=== PATIENT | female | born 1930 | race Caucasian/White ===

== ENCOUNTER 2020-09-12 10:05 | Inpatient (IN) ==
[2020-09-12] MEDS ORDERED: Morphine Sulfate 2 MG/ML SYRINGE IVP ONE (10:29)
[2020-09-12 10:45] LABS: Bacteria,Urine Few per hpf (None-Few); Bilirubin,Urine Negative (Negative); Blood,Urine Negative (Negative); Clarity,Urine Turbid (Clear); Color,Urine Light-Yellow (Yellow); Glucose,Urine (UA) Normal (Normal); Hyaline Casts,Urine Few per lpf (None Seen); Ketones,Urine Negative (Negative); Leukocyte Esterase,Urine Negative (Negative); Nitrite,Urine Negative (Negative); Protein,Urine 50 mg/dL (Neg-Trace); Specific Gravity,Urine 1.011 (1.010-1.025); Urobilinogen,Urine Normal (Normal); WBC,Urine 0-3 per hpf (0-3)
[2020-09-12 10:48] LABS: Hematocrit 26.7 % (35.3-44.9); Hemoglobin 7.9 g/dL (11.5-15.4); Mean Corpuscular HGB Conc 29.6 g/dL (31.6-35.5); Mean Corpuscular Hemoglobin 20.7 pg (28.0-33.3); Mean Corpuscular Volume 70.1 fL (83.0-100.0); Nucleated Red Blood Cells 9.7 /100 WBC (0); Platelet Count 232 K/mcL (140-400); Red Blood Count 3.81 M/mcL (3.82-4.97); Red Cell Distribution Width 23.9 % (11.5-14.5); White Blood Count 8.7 K/mcL (4.3-11.1)
[2020-09-12 11:09] LABS: Activated Partial Thrombo Time 29.5 Seconds (26.0-36.0)
[2020-09-12 11:10] LABS: Calcium 10.9 mg/dL (8.6-10.3); Potassium 4.1 mEq/L (3.5-5.1); Troponin I 0.03 ng/mL (< 0.04)
[2020-09-12 12:06] LABS: Anisocytosis 3+ (Not Present); Eosinophils # 0.3 K/mcL (0.0-0.6); Lymphocytes # 1.2 K/mcL (0.6-4.6); Monocytes # 0.4 K/mcL (0.0-1.3); Neutrophils # 6.5 K/mcL (1.6-8.9); Reactive Lymphocytes Present (Not Present)
[2020-09-12 12:11] LABS: Acanthocytes 1+ (Not Present); Polychromasia 3+ (Not Present)
[2020-09-12 12:12] LABS: Basophilic Stippling 1+ (Not Present); Microcytosis Present (Not Present); Target Cells 1+ (Not Present); Tear Drop Cells 1+ (Not Present)
[2020-09-12 12:13] LABS: Ovalocytes 1+ (Not Present)
[2020-09-12 12:14] LABS: Platelet Estimate Normal (Normal); Poikilocytosis 2+ (Not Present)
[2020-09-12 12:15] LABS: Hypochromasia Present (Not Present)
[2020-09-12] MEDS ORDERED: *HR* HYDROcodone/Acet 5/325 mg TABLET PO ONE (13:35)
[2020-09-12] MEDS ORDERED: Naloxone 0.4 MG/ML INJ IVP PRN (15:26)
[2020-09-12] MEDS ORDERED: Acetaminophen 325 MG TABLET PO PRN (15:26)
[2020-09-12] MEDS: 0.9 % Sodium Chloride 1,000 ML IVC SCH (17:09)
[2020-09-12] MEDS ORDERED: hydrALAZINE 10 MG TABLET PO ONE (18:45)
[2020-09-12] MEDS: hydrALAZINE 25 MG TABLET PO SCH (21:13)
[2020-09-12] MEDS: paricalcitoL 1 MCG CAPSULE PO SCH (21:14)
[2020-09-12] MEDS: Cholecalciferol (D-3) 1,000 UNIT (25MCG) TABLET PO SCH (21:14)
[2020-09-12] MEDS: *HR* HYDROcodone/Acet 5/325 mg TABLET PO PRN (21:15)
[2020-09-12] MEDS: Melatonin 3 MG TABLET PO PRN (22:51)
[2020-09-13 04:43] LABS: Hematocrit 27.7 % (35.3-44.9); Hemoglobin 8.1 g/dL (11.5-15.4); Mean Corpuscular HGB Conc 29.2 g/dL (31.6-35.5); Mean Corpuscular Hemoglobin 20.7 pg (28.0-33.3); Mean Corpuscular Volume 70.7 fL (83.0-100.0); Mean Platelet Volume 8.9 fL (9.4-12.4); Platelet Count 226 K/mcL (140-400); Red Blood Count 3.92 M/mcL (3.82-4.97); Red Cell Distribution Width 24.6 % (11.5-14.5); White Blood Count 9.3 K/mcL (4.3-11.1)
[2020-09-13 04:59] LABS: Calcium 9.7 mg/dL (8.6-10.3); Chol/HDL Ratio 4.9 (0-4.9); Magnesium 1.5 mg/dL (1.6-2.6); Phosphorous 3.1 mg/dL (2.7-4.5); Potassium 4.3 mEq/L (3.5-5.1)
[2020-09-13 05:02] LABS: % Iron Saturation 31 % (15-50); Iron 82 mcg/dL (50-170); Transferrin 191 mg/dL (203-362)
[2020-09-13 05:17] LABS: Ferritin 189 ng/mL (10-120)
[2020-09-13 05:25] LABS: Folate > 22.3 ng/mL (3.0-16.0); Vitamin B12 1173 pg/mL (250-1100)
[2020-09-13] MEDS: lisinopriL 20 MG TABLET PO SCH (08:01)
[2020-09-13] MEDS: paricalcitoL 1 MCG CAPSULE PO SCH ×2 (08:01→21:09)
[2020-09-13] MEDS: hydrALAZINE 25 MG TABLET PO SCH ×2 (08:01→21:09)
[2020-09-13] MEDS: Cholecalciferol (D-3) 1,000 UNIT (25MCG) TABLET PO SCH ×2 (08:02→21:09)
[2020-09-13] MEDS: Folic Acid 1 MG TABLET PO SCH (08:02)
[2020-09-13] MEDS: Pyridoxine (B-6) 50 MG TABLET PO SCH (08:02)
[2020-09-13] MEDS: 0.9 % Sodium Chloride 1,000 ML IVC SCH (11:25)
[2020-09-13] MEDS: *HR* HYDROcodone/Acet 5/325 mg TABLET PO PRN ×2 (15:28→21:09)
[2020-09-14 05:24] LABS: Hematocrit 27.2 % (35.3-44.9); Hemoglobin 7.9 g/dL (11.5-15.4); Mean Corpuscular Hemoglobin 21.1 pg (28.0-33.3); Mean Corpuscular Volume 72.7 fL (83.0-100.0); Mean Platelet Volume 9.1 fL (9.4-12.4); Platelet Count 203 K/mcL (140-400); Red Blood Count 3.74 M/mcL (3.82-4.97); Red Cell Distribution Width 25.9 % (11.5-14.5); White Blood Count 8.3 K/mcL (4.3-11.1)
[2020-09-14 05:36] LABS: Calcium 9.5 mg/dL (8.6-10.3); Potassium 3.8 mEq/L (3.5-5.1)
[2020-09-14] MEDS: 0.9 % Sodium Chloride 1,000 ML IVC SCH (06:07)
[2020-09-14] MEDS: paricalcitoL 1 MCG CAPSULE PO SCH ×2 (09:20→19:54)
[2020-09-14] MEDS: hydrALAZINE 25 MG TABLET PO SCH ×3 (09:20→19:55)
[2020-09-14] MEDS: Pyridoxine (B-6) 50 MG TABLET PO SCH (09:20)
[2020-09-14] MEDS: Cholecalciferol (D-3) 1,000 UNIT (25MCG) TABLET PO SCH ×2 (09:21→19:55)
[2020-09-14] MEDS: lisinopriL 20 MG TABLET PO SCH (09:21)
[2020-09-14] MEDS: Folic Acid 1 MG TABLET PO SCH (09:21)
[2020-09-14] MEDS: *HR* HYDROcodone/Acet 5/325 mg TABLET PO PRN ×2 (14:08→19:55)
[2020-09-14] MEDS: Melatonin 3 MG TABLET PO PRN (19:55)
[2020-09-15] MEDS: 0.9 % Sodium Chloride 1,000 ML IVC SCH ×2 (01:10→14:55)
[2020-09-15 04:39] LABS: Hematocrit 26.4 % (35.3-44.9); Hemoglobin 7.7 g/dL (11.5-15.4); Mean Corpuscular HGB Conc 29.2 g/dL (31.6-35.5); Mean Corpuscular Hemoglobin 21.6 pg (28.0-33.3); Mean Corpuscular Volume 74.2 fL (83.0-100.0); Mean Platelet Volume 9.1 fL (9.4-12.4); Platelet Count 196 K/mcL (140-400); Red Blood Count 3.56 M/mcL (3.82-4.97); Red Cell Distribution Width 26.5 % (11.5-14.5); White Blood Count 7.6 K/mcL (4.3-11.1)
[2020-09-15 04:59] LABS: Calcium 9.5 mg/dL (8.6-10.3); Potassium 3.9 mEq/L (3.5-5.1)
[2020-09-15] MEDS: Magnesium Oxide 400 MG TABLET PO SCH (08:50)
[2020-09-15] MEDS: Cholecalciferol (D-3) 1,000 UNIT (25MCG) TABLET PO SCH ×2 (08:50→22:10)
[2020-09-15] MEDS: lisinopriL 20 MG TABLET PO SCH (08:51)
[2020-09-15] MEDS: Pyridoxine (B-6) 50 MG TABLET PO SCH (08:51)
[2020-09-15] MEDS: paricalcitoL 1 MCG CAPSULE PO SCH ×2 (08:51→22:10)
[2020-09-15] MEDS: Folic Acid 1 MG TABLET PO SCH (08:51)
[2020-09-15] MEDS: hydrALAZINE 25 MG TABLET PO SCH ×3 (08:51→22:11)
[2020-09-15] MEDS: *HR* HYDROcodone/Acet 5/325 mg TABLET PO PRN (08:53)
[2020-09-15] MEDS: Melatonin 3 MG TABLET PO PRN (22:10)
[2020-09-16 05:21] LABS: Calcium 9.2 mg/dL (8.6-10.3); Potassium 3.8 mEq/L (3.5-5.1)
[2020-09-16] MEDS: lisinopriL 20 MG TABLET PO SCH (05:28)
[2020-09-16] MEDS: hydrALAZINE 25 MG TABLET PO SCH ×2 (05:28→14:30)
[2020-09-16 08:36] LABS: Hematocrit 28.3 % (35.3-44.9); Hemoglobin 8.4 g/dL (11.5-15.4); Mean Corpuscular HGB Conc 29.7 g/dL (31.6-35.5); Mean Corpuscular Hemoglobin 21.5 pg (28.0-33.3); Mean Corpuscular Volume 72.4 fL (83.0-100.0); Mean Platelet Volume 8.8 fL (9.4-12.4); Platelet Count 184 K/mcL (140-400); Red Blood Count 3.91 M/mcL (3.82-4.97); Red Cell Distribution Width 27.3 % (11.5-14.5); White Blood Count 8.1 K/mcL (4.3-11.1)
[2020-09-16] MEDS: 0.9 % Sodium Chloride 1,000 ML IVC SCH (08:38)
[2020-09-16] MEDS: Cholecalciferol (D-3) 1,000 UNIT (25MCG) TABLET PO SCH (08:39)
[2020-09-16] MEDS: Magnesium Oxide 400 MG TABLET PO SCH (08:39)
[2020-09-16] MEDS: Pyridoxine (B-6) 50 MG TABLET PO SCH (08:39)
[2020-09-16] MEDS: paricalcitoL 1 MCG CAPSULE PO SCH (08:39)
[2020-09-16] MEDS: Folic Acid 1 MG TABLET PO SCH (08:39)
[2020-09-16] MEDS: cloNIDine HCL 0.1 MG TABLET PO SCH ×2 (10:48→14:30)
[2020-09-16 12:37] VITALS: BP 158/62
== END 2020-09-16 15:43 | disposition home or self-care (01) ==
LOC: EMEROOARM 10:05 → 3BNU 10:05
PROVIDERS: ADMIT Internal Medicine; ATTEND Internal Medicine

== ENCOUNTER 2020-11-24 10:36 | Inpatient (IN) ==
[2020-11-24 11:34] LABS: Basophils % 0.1 %; Eosinophils % 0.2 %; Hematocrit 28.9 % (35.3-44.9); Hemoglobin 8.6 g/dL (11.5-15.4); Immature Granulocytes % 0.6 % (0-4); Lymphocytes # 2.4 K/mcL (0.6-4.6); Lymphocytes % 21.3 %; Mean Corpuscular HGB Conc 29.8 g/dL (31.6-35.5); Mean Corpuscular Hemoglobin 21.4 pg (28.0-33.3); Mean Corpuscular Volume 72.1 fL (83.0-100.0); Mean Platelet Volume 8.5 fL (9.4-12.4); Monocytes # 1.2 K/mcL (0.0-1.3); Monocytes % 10.6 %; Neutrophils # 7.4 K/mcL (1.6-8.9); Nucleated Red Blood Cells 0.3 /100 WBC (0); Platelet Count 250 K/mcL (140-400); Red Blood Count 4.01 M/mcL (3.82-4.97); Red Cell Distribution Width 21.9 % (11.5-14.5); Segmented Neutrophils % 67.2 %; White Blood Count 11.1 K/mcL (4.3-11.1)
[2020-11-24 11:48] LABS: INR 1.1; Prothrombin Time 12.7 Seconds (9.4-12.1)
[2020-11-24 11:56] LABS: BUN/Creatinine Ratio 11 (6-26); Blood Urea Nitrogen 59 mg/dL (8-23); Calcium 10.3 mg/dL (8.6-10.3); Carbon Dioxide 20 mEq/L (23-29); Chloride 105 mEq/L (98-107); Creatine Kinase 265 Units/L (30-223); Glucose 122 mg/dL (70-105); Osmolality,Calculated 298 (280-300); Sodium 135 mEq/L (136-145); Troponin I < 0.03 ng/mL (< 0.04); eGFR For African Americans 9 (> 60); eGFR For Non-African Americans 7 (> 60)
[2020-11-24 11:58] LABS: Bilirubin,Urine Negative (Negative); Blood,Urine Small (Negative); Clarity,Urine Turbid (Clear); Color,Urine Yellow (Yellow); Glucose,Urine (UA) Normal (Normal); Ketones,Urine Negative (Negative); Leukocyte Esterase,Urine Large (Negative); Nitrite,Urine Negative (Negative); PH,Urine 7.5 pH Units (5.0-8.0); Protein,Urine 100 mg/dL (Neg-Trace); RBC,Urine 0-3 per hpf (0-3); Specific Gravity,Urine 1.011 (1.010-1.025); Urobilinogen,Urine Normal (Normal); WBC,Urine TNTC per hpf (0-3)
[2020-11-24] MEDS: cefTRIAXone 1,000 MG in Water for inj. (sterile) 10 ML IVP ONE (13:53)
[2020-11-24] MEDS ORDERED: Naloxone 0.4 MG/ML INJ IVP PRN (14:30)
[2020-11-24] MEDS ORDERED: Ondansetron 4 MG/2 ML VIAL IVP PRN (14:30)
[2020-11-24] MEDS ORDERED: 0.9 % Sodium Chloride 1,000 ML IVC SCH (14:45)
[2020-11-24] MEDS: hydrALAZINE 25 MG TABLET PO SCH ×3 (15:36→20:29)
[2020-11-24] MEDS ORDERED: cloNIDine HCL 0.1 MG TABLET PO ONE (16:35)
[2020-11-24] MEDS ORDERED: *HR* HYDROcodone/Acet 5/325 mg TABLET PO ONE (18:21)
[2020-11-24] MEDS: cloNIDine HCL 0.1 MG TABLET PO SCH (20:29)
[2020-11-25 01:19] LABS: Basophils % 0.2 %; Eosinophils # 0.1 K/mcL (0.0-0.6); Eosinophils % 0.9 %; Hematocrit 26.6 % (35.3-44.9); Immature Granulocytes % 0.6 % (0-4); Lymphocytes # 2.4 K/mcL (0.6-4.6); Lymphocytes % 20.5 %; Mean Corpuscular HGB Conc 30.1 g/dL (31.6-35.5); Mean Corpuscular Hemoglobin 21.3 pg (28.0-33.3); Mean Corpuscular Volume 70.9 fL (83.0-100.0); Mean Platelet Volume 8.7 fL (9.4-12.4); Monocytes # 1.2 K/mcL (0.0-1.3); Monocytes % 10.7 %; Neutrophils # 7.8 K/mcL (1.6-8.9); Nucleated Red Blood Cells 0.2 /100 WBC (0); Platelet Count 259 K/mcL (140-400); Red Blood Count 3.75 M/mcL (3.82-4.97); Red Cell Distribution Width 21.8 % (11.5-14.5); Segmented Neutrophils % 67.1 %; White Blood Count 11.5 K/mcL (4.3-11.1)
[2020-11-25 01:39] LABS: Calcium 9.5 mg/dL (8.6-10.3); Magnesium 2.1 mg/dL (1.6-2.6); Potassium 4.6 mEq/L (3.5-5.1)
[2020-11-25] MEDS: cloNIDine HCL 0.1 MG TABLET PO SCH ×3 (07:58→20:07)
[2020-11-25] MEDS: hydrALAZINE 25 MG TABLET PO SCH ×3 (07:58→20:07)
[2020-11-25] MEDS: Sodium Bicarbonate 75 MEQ in 0.45 % Sodium Chloride 1,000 ML IVC SCH (11:32)
[2020-11-25 11:41] LABS: Protein/Creatinine Ratio,Urine 2.67 mg/mg (0.00-0.20); Sodium, Urine 107.5 mEq/L
[2020-11-25 11:49] LABS: Bacteria,Urine Few per hpf (None-Few); Bilirubin,Urine Negative (Negative); Blood,Urine Small (Negative); Clarity,Urine Turbid (Clear); Color,Urine Yellow (Yellow); Glucose,Urine (UA) Normal (Normal); Ketones,Urine Negative (Negative); Leukocyte Esterase,Urine Large (Negative); Nitrite,Urine Negative (Negative); Protein,Urine 100 mg/dL (Neg-Trace); RBC,Urine 15-30 per hpf (0-3); Specific Gravity,Urine 1.012 (1.010-1.025); Urobilinogen,Urine Normal (Normal); WBC,Urine TNTC per hpf (0-3)
[2020-11-25] MEDS: cefTRIAXone 1,000 MG in 0.9 % Sodium Chloride Mini Bag 100 ML IVPB SCH (14:43)
[2020-11-25] MEDS: paricalcitoL 1 MCG CAPSULE PO SCH (20:07)
[2020-11-25] MEDS: cefTRIAXone 1,000 MG in Water for inj. (sterile) 10 ML IVP ONE (20:56)
[2020-11-26] MEDS: Sodium Bicarbonate 75 MEQ in 0.45 % Sodium Chloride 1,000 ML IVC SCH (05:18)
[2020-11-26] MEDS: hydrALAZINE 25 MG TABLET PO SCH ×3 (08:09→20:36)
[2020-11-26] MEDS: cloNIDine HCL 0.1 MG TABLET PO SCH ×3 (08:09→20:37)
[2020-11-26] MEDS: Folic Acid 1 MG TABLET PO SCH (08:09)
[2020-11-26] MEDS: paricalcitoL 1 MCG CAPSULE PO SCH ×2 (08:09→20:37)
[2020-11-26 08:11] LABS: Hematocrit 27.5 % (35.3-44.9); Hemoglobin 8.4 g/dL (11.5-15.4); Mean Corpuscular HGB Conc 30.5 g/dL (31.6-35.5); Mean Corpuscular Hemoglobin 21.6 pg (28.0-33.3); Mean Corpuscular Volume 70.7 fL (83.0-100.0); Mean Platelet Volume 8.3 fL (9.4-12.4); Platelet Count 260 K/mcL (140-400); Red Blood Count 3.89 M/mcL (3.82-4.97); Red Cell Distribution Width 21.8 % (11.5-14.5); White Blood Count 8.2 K/mcL (4.3-11.1)
[2020-11-26 08:28] LABS: Calcium 9.2 mg/dL (8.6-10.3); Magnesium 1.9 mg/dL (1.6-2.6); Potassium 4.1 mEq/L (3.5-5.1)
[2020-11-26] MEDS: cefTRIAXone 1,000 MG in 0.9 % Sodium Chloride Mini Bag 100 ML IVPB SCH (14:59)
[2020-11-26] MEDS ORDERED: Melatonin 3 MG TABLET PO PRN (15:19)
[2020-11-26] MEDS: *HR* Heparin 5,000 UNIT/ML VIAL SQ SCH (16:42)
[2020-11-26] MEDS: Ciprofloxacin/Dex *EAR* Susp 7.5 ML BOTTLE RIGHT EAR SCH (20:37)
[2020-11-26] MEDS ORDERED: Sodium Bicarbonate 75 MEQ in 0.45 % Sodium Chloride 1,000 ML IH SCH (20:45)
[2020-11-26] MEDS ORDERED: Sodium Bicarbonate 75 MEQ in 0.45 % Sodium Chloride 1,000 ML IVC SCH (21:00)
[2020-11-27] MEDS: Sodium Bicarbonate 75 MEQ in 0.45 % Sodium Chloride 1,000 ML IVC SCH (02:25)
[2020-11-27] MEDS: *HR* Heparin 5,000 UNIT/ML VIAL SQ SCH ×2 (05:29→18:11)
[2020-11-27 05:44] LABS: Hematocrit 26.3 % (35.3-44.9); Hemoglobin 7.8 g/dL (11.5-15.4); Mean Corpuscular HGB Conc 29.7 g/dL (31.6-35.5); Mean Corpuscular Hemoglobin 21.4 pg (28.0-33.3); Mean Corpuscular Volume 72.3 fL (83.0-100.0); Mean Platelet Volume 8.8 fL (9.4-12.4); Platelet Count 262 K/mcL (140-400); Red Blood Count 3.64 M/mcL (3.82-4.97); Red Cell Distribution Width 21.6 % (11.5-14.5); White Blood Count 8.1 K/mcL (4.3-11.1)
[2020-11-27 06:08] LABS: Potassium 4.3 mEq/L (3.5-5.1)
[2020-11-27] MEDS: paricalcitoL 1 MCG CAPSULE PO SCH ×2 (08:44→21:11)
[2020-11-27] MEDS: cloNIDine HCL 0.1 MG TABLET PO SCH ×3 (08:44→21:10)
[2020-11-27] MEDS: Folic Acid 1 MG TABLET PO SCH (08:44)
[2020-11-27] MEDS: hydrALAZINE 25 MG TABLET PO SCH ×3 (08:44→21:11)
[2020-11-27] MEDS: Ciprofloxacin/Dex *EAR* Susp 7.5 ML BOTTLE RIGHT EAR SCH ×2 (08:46→21:16)
[2020-11-27] MEDS ORDERED: amLODIPine 5 MG TABLET PO SCH (09:00)
[2020-11-27] MEDS: cefTRIAXone 1,000 MG in 0.9 % Sodium Chloride Mini Bag 100 ML IVPB SCH (12:10)
[2020-11-27] MEDS ORDERED: amLODIPine 5 MG TABLET PO ONE (21:00)
[2020-11-28 03:32] LABS: Hematocrit 26.7 % (35.3-44.9); Mean Corpuscular Hemoglobin 21.3 pg (28.0-33.3); Mean Platelet Volume 8.6 fL (9.4-12.4); Platelet Count 246 K/mcL (140-400); Red Blood Count 3.76 M/mcL (3.82-4.97); Red Cell Distribution Width 21.8 % (11.5-14.5)
[2020-11-28 03:48] LABS: Potassium 3.9 mEq/L (3.5-5.1)
[2020-11-28] MEDS: *HR* Heparin 5,000 UNIT/ML VIAL SQ SCH ×2 (05:27→17:49)
[2020-11-28] MEDS: hydrALAZINE 25 MG TABLET PO SCH ×3 (07:50→20:48)
[2020-11-28] MEDS: paricalcitoL 1 MCG CAPSULE PO SCH ×2 (07:50→20:48)
[2020-11-28] MEDS: cloNIDine HCL 0.1 MG TABLET PO SCH ×3 (07:51→20:48)
[2020-11-28] MEDS: Folic Acid 1 MG TABLET PO SCH (07:51)
[2020-11-28] MEDS: Ciprofloxacin/Dex *EAR* Susp 7.5 ML BOTTLE RIGHT EAR SCH ×2 (07:52→20:49)
[2020-11-28] MEDS: Cefdinir 300 MG CAPSULE PO SCH (15:47)
[2020-11-28] MEDS: cefTRIAXone 1,000 MG in 0.9 % Sodium Chloride Mini Bag 100 ML IVPB SCH (17:00)
[2020-11-28] MEDS: amLODIPine 5 MG TABLET PO SCH (21:15)
[2020-11-29 05:35] LABS: Hematocrit 23.5 % (35.3-44.9); Mean Corpuscular HGB Conc 29.8 g/dL (31.6-35.5); Mean Corpuscular Hemoglobin 21.3 pg (28.0-33.3); Mean Corpuscular Volume 71.4 fL (83.0-100.0); Platelet Count 220 K/mcL (140-400); Red Blood Count 3.29 M/mcL (3.82-4.97); White Blood Count 8.8 K/mcL (4.3-11.1)
[2020-11-29] MEDS: *HR* Heparin 5,000 UNIT/ML VIAL SQ SCH ×2 (05:49→17:25)
[2020-11-29 05:52] LABS: Potassium 3.8 mEq/L (3.5-5.1)
[2020-11-29] MEDS: paricalcitoL 1 MCG CAPSULE PO SCH ×2 (08:13→20:31)
[2020-11-29] MEDS: Ciprofloxacin/Dex *EAR* Susp 7.5 ML BOTTLE RIGHT EAR SCH ×2 (08:13→20:32)
[2020-11-29] MEDS: hydrALAZINE 25 MG TABLET PO SCH ×3 (08:14→20:32)
[2020-11-29] MEDS: amLODIPine 5 MG TABLET PO SCH (08:14)
[2020-11-29] MEDS: cloNIDine HCL 0.1 MG TABLET PO SCH ×3 (08:14→20:32)
[2020-11-29] MEDS: Folic Acid 1 MG TABLET PO SCH (08:14)
[2020-11-29] MEDS: Cefdinir 300 MG CAPSULE PO SCH (14:58)
[2020-11-30 01:03] LABS: Hemoglobin 7.4 g/dL (11.5-15.4); Mean Corpuscular HGB Conc 29.6 g/dL (31.6-35.5); Mean Corpuscular Hemoglobin 20.8 pg (28.0-33.3); Mean Corpuscular Volume 70.4 fL (83.0-100.0); Mean Platelet Volume 8.8 fL (9.4-12.4); Platelet Count 250 K/mcL (140-400); Red Blood Count 3.55 M/mcL (3.82-4.97); Red Cell Distribution Width 21.2 % (11.5-14.5); White Blood Count 9.9 K/mcL (4.3-11.1)
[2020-11-30 01:21] LABS: Calcium 9.3 mg/dL (8.6-10.3); Potassium 3.9 mEq/L (3.5-5.1)
[2020-11-30 01:22] LABS: % Iron Saturation 11 % (15-50); Iron 21 mcg/dL (50-170); Transferrin 133 mg/dL (203-362)
[2020-11-30 01:40] LABS: Ferritin 342 ng/mL (10-120)
[2020-11-30 01:46] LABS: Folate 21.4 ng/mL (3.0-16.0)
[2020-11-30] MEDS: *HR* Heparin 5,000 UNIT/ML VIAL SQ SCH (05:57)
[2020-11-30] MEDS ORDERED: Iron Sucrose Complex 400 MG in 0.9 % Sodium Chloride 250 ML IVPB ONE (07:13)
[2020-11-30] MEDS ORDERED: 0.9 % Sodium Chloride 1,000 ML IVC SCH (07:15)
[2020-11-30] MEDS: Ciprofloxacin/Dex *EAR* Susp 7.5 ML BOTTLE RIGHT EAR SCH (08:31)
[2020-11-30] MEDS: hydrALAZINE 25 MG TABLET PO SCH ×2 (08:32→13:58)
[2020-11-30] MEDS: cloNIDine HCL 0.1 MG TABLET PO SCH ×2 (08:32→13:58)
[2020-11-30] MEDS: Folic Acid 1 MG TABLET PO SCH (08:32)
[2020-11-30] MEDS: paricalcitoL 1 MCG CAPSULE PO SCH (08:36)
[2020-11-30] MEDS: amLODIPine 5 MG TABLET PO SCH (08:36)
[2020-11-30 11:26] VITALS: BP 139/54
[2020-11-30] MEDS ORDERED: predniSONE 20 MG TABLET PO SCH (12:30)
[2020-11-30 15:40] LABS: Adenovirus Not Detected (Not Detect); Bordetella Pertussis Not Detected (Not Detect); Chlamydophila pneumoniae Not Detected (Not Detect); Coronavirus 229E Not Detected (Not Detect); Coronavirus HKU1 Not Detected (Not Detect); Coronavirus NL63 Not Detected (Not Detect); Coronavirus OC43 Not Detected (Not Detect); Human Metapneumovirus Not Detected (Not Detect); Human Rhinovirus/Enterovirus Not Detected (Not Detect); Influenza A Subtype 2009 H1 Not Detected (Not Detect); Influenza B Not Detected (Not Detect); Mycoplasma pneumoniae Not Detected (Not Detect); Parainfluenza Virus 1 Not Detected (Not Detect); Parainfluenza Virus 2 Not Detected (Not Detect); Parainfluenza Virus 3 Not Detected (Not Detect); Parainfluenza Virus 4 Not Detected (Not Detect); Respiratory Syncytial Virus Not Detected (Not Detect); SARS-CoV-2 Not Detected (Not Detect)
[2020-11-30] MEDS: Cefdinir 300 MG CAPSULE PO SCH (15:45)
== END 2020-11-30 18:46 | DRG 682 ==
LOC: 2ANU 10:36 → EMEROOARM 10:36 → SUATTDRO 15:25 → 2ANU 16:10 → SUATTDRO 11-26 11:56
PROVIDERS: ADMIT Family Medicine; ATTEND Internal Medicine